=== PATIENT | female | born 1995 | race African-American/Black ===

== ENCOUNTER 2017-08-15 07:04 | Inpatient (IN) ==
[~2017-08-15 07:04] MED LIST: ceFAZolin 1,000 MG in SYRINGE 1 EACH IV SCH
[2017-08-15] MEDS ORDERED: FAMOTIDINE 20 MG/2 ML VIAL IV ONE (07:49)
[2017-08-15] MEDS ORDERED: CITRIC ACID/SODIUM CITRATE 30 ML UDCUP PO ONE (07:49)
[2017-08-15 08:16] LABS: Basophils % 0.2 % (0.0-0.8); Eosinophils % 0.6 % (0.00-10.9); Hematocrit 36.1 VOL% (35.7-47.0); Hemoglobin 11.6 GM/DL (12.0-16.0); Immature Granulocytes % 0.3 %; Immature Granulocytes Absolute 0.02 #; Lymphocytes % 32.2 % (21.3-54.2); Mean Corpuscular HGB Conc 32.1 GM/DL (32-36); Mean Corpuscular Hemoglobin 27 PG (27-34); Mean Corpuscular Volume 83.2 FL (87-102); Mean Platelet Volume 11.9 FL (9.6-12.0); Monocytes # 0.3 10*3/uL (0.11-0.8); Monocytes % 5.4 % (1.7-12.7); Neutrophils # 3.9 10*3/uL (1.4-7.4); Neutrophils % 61.3 % (38.7-73.9); Platelet Count 204 T/CUMM (130-400); Red Blood Count 4.34 MC/CUMM (3.8-5.5); White Blood Count 6.3 T/CUMM (4-12)
[2017-08-15] MEDS: LACTATED RINGERS 1,000 ML IV SCH ×2 (08:31→15:29)
[2017-08-15 08:33] LABS: Albumin 2.6 G/DL (3.4-5.0); Bilirubin,Total 0.5 MG/DL (0.2-1.0); Calcium 8.2 MG/DL (8.5-10.1); Osmolality,Calculated 276.4 MOS/KG (273-304); Potassium 3.6 MMOL/L (3.5-5.1)
[2017-08-15] MEDS ORDERED: cefOXitin 2,000 MG in SYRINGE 1 EACH IV ONE (08:46)
[2017-08-15] MEDS ORDERED: ONDANSETRON 4 MG/2 ML VIAL IV ONE (08:47)
[2017-08-15] MEDS ORDERED: PROMETHAZINE 25 MG/1 ML VIAL IM ONE (08:47)
[2017-08-15] MEDS ORDERED: diphenhydrAMINE 50 MG/1 ML VIAL IV PRN ×4 (08:47→18:39)
[2017-08-15] MEDS ORDERED: ePHEDrine 50 MG/ML AMP IV PRN (08:47)
[2017-08-15] MEDS ORDERED: hydrOXYzine HCL 25 MG/1 ML VIAL IM PRN ×2 (08:47→18:39)
[2017-08-15] MEDS ORDERED: LACTATED RINGERS 1,000 ML IV ONE (08:47)
[2017-08-15] MEDS ORDERED: OXYTOCIN/LR 20 UNIT/1,000 ML BAG IV ONE ×3 (08:50→20:23)
[2017-08-15] MEDS ORDERED: SODIUM CHLORIDE 0.9% 100 ML IV ONE (09:31)
[2017-08-15] MEDS ORDERED: MIDAZOLAM 2 MG/2 ML VIAL ONE (17:39)
[2017-08-15] MEDS ORDERED: fentaNYL 100 MCG/2 ML VIAL ONE ×2 (17:39→17:49)
[2017-08-15] MEDS ORDERED: MORPHINE 10 MG/10 ML VIAL ONE (17:39)
[2017-08-15] MEDS ORDERED: SUCCINYLCHOLINE 200 MG/10 ML VIAL ONE (17:40)
[2017-08-15] MEDS ORDERED: PROPOFOL 200 MG/20 ML VIAL IV ONE (17:40)
[2017-08-15] MEDS ORDERED: ONDANSETRON 4 MG/2 ML VIAL ONE (17:40)
[2017-08-15] MEDS ORDERED: KETOROLAC 60 MG/2 ML VIAL IM ONE (18:39)
[2017-08-15] MEDS ORDERED: ONDANSETRON 4 MG/2 ML VIAL IV PRN ×2 (18:39→20:23)
[2017-08-15] MEDS ORDERED: NALOXONE 0.4 MG/ML VIAL IV PRN (18:41)
[2017-08-15] MEDS ORDERED: MORPHINE PCA 30 MG/30 ML SYRINGE IV SCH (19:00)
[2017-08-15 19:16] LABS: Apearance,Urine Slightly Hazy (Clear); Bacteria,Urine Occasional /HPF (Few); Bilirubin,Urine Negative (Negative); Blood, Urine Negative (Negative); Glucose,Urine (UA) Negative (Negative); Ketones,Urine 20 mg/dL (Negative); Mucus,Urine Occasional /LPF (Occasional); Nitrite,Urine Negative (Negative); Protein,Urine 30 MG/DL; RBC,Urine 3 /HPF (0-4); Squamous Epithelial Cell,Urine Occasional /HPF (0-10); Urine Color Yellow (Yellow); Urine Specific Gravity 1.024 (1.001-1.035); Urine Urobilinogen < 2.0 EU/DL (0.2-1.0); WBC,Urine 1 /HPF (0-6)
[2017-08-15] MEDS ORDERED: SIMETHICONE CHEW 80 MG TABLET PO PRN (20:23)
[2017-08-15] MEDS ORDERED: MAGNESIUM HYDROXIDE SUSP 30 ML UDCUP PO PRN (20:23)
[2017-08-15] MEDS ORDERED: ACETAMINOPHEN 325 MG TABLET PO PRN (20:23)
[2017-08-15] MEDS ORDERED: RHO(D) IMMUNE GLOBULIN 300 MCG SYRINGE IM ONE (20:23)
[2017-08-15] MEDS: DOCUSATE SODIUM 100 MG CAPSULE PO SCH (21:07)
[2017-08-16] MEDS: KETOROLAC 30 MG/1 ML VIAL IM SCH ×4 (01:21→20:24)
[2017-08-16] MEDS: KETOROLAC 30 MG/1 ML VIAL IV SCH ×4 (01:21→20:23)
[2017-08-16] MEDS: ceFAZolin 1,000 MG in SYRINGE 1 EACH IV SCH ×2 (01:27→08:11)
[2017-08-16 05:38] LABS: Basophils % 0.1 % (0.0-0.8); Eosinophils % 0.3 % (0.00-10.9); Hematocrit 32.4 VOL% (35.7-47.0); Immature Granulocytes % 0.4 %; Immature Granulocytes Absolute 0.03 #; Lymphocytes % 28.6 % (21.3-54.2); Mean Corpuscular HGB Conc 30.9 GM/DL (32-36); Mean Corpuscular Hemoglobin 26 PG (27-34); Mean Platelet Volume 11.4 FL (9.6-12.0); Monocytes # 0.4 10*3/uL (0.11-0.8); Monocytes % 5.3 % (1.7-12.7); Neutrophils # 4.6 10*3/uL (1.4-7.4); Neutrophils % 65.3 % (38.7-73.9); Platelet Count 182 T/CUMM (130-400); Red Blood Count 3.81 MC/CUMM (3.8-5.5); Red Cell Distribution Width 15.9 % (9.3-17.3)
[2017-08-16] MEDS: LACTATED RINGERS 1,000 ML IV SCH ×3 (07:44→17:30)
[2017-08-16] MEDS: DOCUSATE SODIUM 100 MG CAPSULE PO SCH ×2 (08:12→20:48)
[2017-08-16] MEDS: MULTIVITAMIN (PRENATAL) TABLET PO SCH (08:12)
[2017-08-16] MEDS: IBUPROFEN 800 MG TABLET PO PRN (13:57)
[2017-08-17] MEDS: IBUPROFEN 800 MG TABLET PO PRN (03:38)
[2017-08-17] MEDS: DOCUSATE SODIUM 100 MG CAPSULE PO SCH ×2 (09:25→21:18)
[2017-08-17] MEDS: MULTIVITAMIN (PRENATAL) TABLET PO SCH (09:25)
[2017-08-17] MEDS: LACTATED RINGERS 1,000 ML IV SCH (11:04)
[2017-08-17] MEDS ORDERED: KETOROLAC 30 MG/1 ML VIAL IM PRN (12:53)
[2017-08-17] MEDS: oxyCODONE/ACETAMINOPHEN 5-325 MG TABLET PO PRN ×2 (13:46→21:18)
[2017-08-18] MEDS: oxyCODONE/ACETAMINOPHEN 5-325 MG TABLET PO PRN ×2 (05:45→14:03)
[2017-08-18 07:22] VITALS: BP 132/88
[2017-08-18] MEDS: DOCUSATE SODIUM 100 MG CAPSULE PO SCH (09:13)
[2017-08-18] MEDS: MULTIVITAMIN (PRENATAL) TABLET PO SCH (09:13)
[2017-08-18] MEDS: IBUPROFEN 800 MG TABLET PO PRN (14:03)
== END 2017-08-18 17:55 | disposition home or self-care (01) | DRG 540 ==
LOC: N.LDOUT 07:04 → N.LD 07:05 → N.OB 21:35
PROVIDERS: ADMIT Obstetrics & Gynecology; ATTEND Obstetrics & Gynecology
PROC: LDCSECT (ICD-10-PCS; 2017-08-15 17:00)

== ENCOUNTER 2018-08-28 04:23 | Inpatient (IN) ==
[2018-08-28] MEDS ORDERED: CITRIC ACID/SODIUM CITRATE 30 ML UDCUP PO ONE (04:32)
[2018-08-28] MEDS ORDERED: FAMOTIDINE 20 MG/2 ML VIAL IV PRN (04:32)
[2018-08-28] MEDS ORDERED: LACTATED RINGERS 1,000 ML IV SCH ×2 (05:00→09:30)
[2018-08-28 05:30] LABS: Basophils % 0.3 % (0.0-0.8); Eosinophils # 0.2 10*3/uL (0.0-0.87); Hematocrit 37.6 VOL% (35.7-47.0); Hemoglobin 11.4 GM/DL (12.0-16.0); Immature Granulocytes % 0.3 %; Immature Granulocytes Absolute 0.02 #; Lymphocytes % 39.1 % (21.3-54.2); Mean Corpuscular HGB Conc 30.3 GM/DL (32-36); Mean Corpuscular Hemoglobin 26 PG (27-34); Mean Corpuscular Volume 84.1 FL (87-102); Monocytes # 0.3 10*3/uL (0.11-0.8); Monocytes % 4.3 % (1.7-12.7); Neutrophils # 4.1 10*3/uL (1.4-7.4); Platelet Count 234 T/CUMM (130-400); Red Blood Count 4.47 MC/CUMM (3.8-5.5); White Blood Count 7.7 T/CUMM (4-12)
[2018-08-28] MEDS ORDERED: OXYTOCIN/LR 20 UNIT/1,000 ML BAG IV PRN (06:39)
[2018-08-28] MEDS ORDERED: EPINEPHrine 1 MG/ML VIAL ONE (07:25)
[2018-08-28] MEDS ORDERED: ACETAMINOPHEN 325 MG TABLET PO PRN (09:12)
[2018-08-28] MEDS ORDERED: ONDANSETRON 4 MG/2 ML VIAL IV PRN (09:12)
[2018-08-28] MEDS ORDERED: RHO(D) IMMUNE GLOBULIN 300 MCG SYRINGE IM ONE (09:12)
[2018-08-28] MEDS ORDERED: OXYTOCIN/LR 20 UNIT/1,000 ML BAG IV ONE (09:12)
[2018-08-28] MEDS ORDERED: oxyCODONE/ACETAMINOPHEN 5-325 MG TABLET PO PRN ×2 (09:13→19:29)
[2018-08-28] MEDS ORDERED: ceFAZolin 1,000 MG in SYRINGE 1 EACH IV SCH (09:30)
[2018-08-28 10:27] LABS: Apearance,Urine Slightly Hazy (Clear); Bilirubin,Urine Negative (Negative); Blood, Urine Negative (Negative); Glucose,Urine (UA) Negative (Negative); Hyaline Casts,Urine 2 /LPF (0-3); Ketones,Urine 20 mg/dL (Negative); Mucus,Urine Few /LPF (Occasional); Nitrite,Urine Negative (Negative); Protein,Urine 30 MG/DL; RBC,Urine 1 /HPF (0-4); Squamous Epithelial Cell,Urine Occasional /HPF (0-10); Urine Color Yellow (Yellow); Urine Specific Gravity 1.031 (1.001-1.035); WBC,Urine 2 /HPF (0-6)
[2018-08-28] MEDS ORDERED: BUPIVACAINE SPINAL 0.75% 2 ML AMP SPINAL ONE (10:35)
[2018-08-28] MEDS ORDERED: ONDANSETRON 4 MG/2 ML VIAL ONE (10:36)
[2018-08-28] MEDS ORDERED: MORPHINE 10 MG/10 ML VIAL ONE (10:36)
[2018-08-28] MEDS ORDERED: PHENYLEPHRINE 1 MG/10 ML SYRINGE IV ONE (10:36)
[2018-08-28] MEDS ORDERED: fentaNYL 100 MCG/2 ML VIAL ONE (10:36)
[2018-08-28] MEDS: ceFAZolin 1,000 MG in SYRINGE 1 EACH IV SCH (16:00)
[2018-08-28 16:37] LABS: Basophils % 0.2 % (0.0-0.8); Eosinophils # 0.1 10*3/uL (0.0-0.87); Eosinophils % 1.5 % (0.00-10.9); Hematocrit 35.7 VOL% (35.7-47.0); Hemoglobin 10.9 GM/DL (12.0-16.0); Immature Granulocytes % 0.2 %; Immature Granulocytes Absolute 0.02 #; Lymphocytes # 2.3 10*3/uL (1.4-4.0); Lymphocytes % 28.1 % (21.3-54.2); Mean Corpuscular HGB Conc 30.5 GM/DL (32-36); Mean Corpuscular Hemoglobin 26 PG (27-34); Mean Corpuscular Volume 83.8 FL (87-102); Mean Platelet Volume 11.7 FL (9.6-12.0); Monocytes # 0.4 10*3/uL (0.11-0.8); Monocytes % 4.3 % (1.7-12.7); Neutrophils # 5.4 10*3/uL (1.4-7.4); Neutrophils % 65.7 % (38.7-73.9); Platelet Count 212 T/CUMM (130-400); Red Blood Count 4.26 MC/CUMM (3.8-5.5); Red Cell Distribution Width 16.1 % (9.3-17.3); White Blood Count 8.2 T/CUMM (4-12)
[2018-08-28] MEDS ORDERED: diphenhydrAMINE CAP 25 MG CAPSULE PO PRN (18:44)
[2018-08-28] MEDS: DOCUSATE SODIUM 100 MG CAPSULE PO SCH (20:58)
[2018-08-29] MEDS: IBUPROFEN 800 MG TABLET PO PRN ×3 (00:06→17:47)
[2018-08-29] MEDS: ceFAZolin 1,000 MG in SYRINGE 1 EACH IV SCH (00:07)
[2018-08-29 05:33] LABS: Basophils % 0.3 % (0.0-0.8); Eosinophils # 0.2 10*3/uL (0.0-0.87); Immature Granulocytes % 0.3 %; Immature Granulocytes Absolute 0.03 #; Lymphocytes # 2.4 10*3/uL (1.4-4.0); Lymphocytes % 26.6 % (21.3-54.2); Mean Corpuscular HGB Conc 30.6 GM/DL (32-36); Mean Corpuscular Hemoglobin 25 PG (27-34); Mean Corpuscular Volume 83.1 FL (87-102); Mean Platelet Volume 12.1 FL (9.6-12.0); Monocytes # 0.5 10*3/uL (0.11-0.8); Monocytes % 5.6 % (1.7-12.7); Neutrophils # 5.8 10*3/uL (1.4-7.4); Neutrophils % 65.2 % (38.7-73.9); Platelet Count 231 T/CUMM (130-400); Red Blood Count 4.33 MC/CUMM (3.8-5.5); Red Cell Distribution Width 15.8 % (9.3-17.3); White Blood Count 8.9 T/CUMM (4-12)
[2018-08-29] MEDS: MULTIVITAMIN (PRENATAL) TABLET PO SCH (08:05)
[2018-08-29] MEDS: DOCUSATE SODIUM 100 MG CAPSULE PO SCH ×2 (08:05→20:12)
[2018-08-29] MEDS: MAGNESIUM HYDROXIDE SUSP 30 ML UDCUP PO PRN ×2 (08:06→20:12)
[2018-08-29] MEDS: SIMETHICONE CHEW 80 MG TABLET PO PRN (08:06)
[2018-08-30] MEDS: IBUPROFEN 800 MG TABLET PO PRN ×3 (00:39→20:55)
[2018-08-30] MEDS: MAGNESIUM HYDROXIDE SUSP 30 ML UDCUP PO PRN (08:40)
[2018-08-30] MEDS: DOCUSATE SODIUM 100 MG CAPSULE PO SCH ×2 (08:40→20:54)
[2018-08-30] MEDS: SIMETHICONE CHEW 80 MG TABLET PO PRN (08:40)
[2018-08-30] MEDS: MULTIVITAMIN (PRENATAL) TABLET PO SCH (08:40)
[2018-08-31 07:25] VITALS: BP 154/92
[2018-08-31] MEDS: DOCUSATE SODIUM 100 MG CAPSULE PO SCH (08:48)
[2018-08-31] MEDS: MULTIVITAMIN (PRENATAL) TABLET PO SCH (08:48)
[2018-08-31] MEDS: SIMETHICONE CHEW 80 MG TABLET PO PRN (12:20)
== END 2018-08-31 15:40 | disposition home or self-care (01) | DRG 540 ==
LOC: N.LDOUT 04:23 → N.LD 04:25 → N.OB 12:03
PROVIDERS: ADMIT Obstetrics & Gynecology; ATTEND Obstetrics & Gynecology
PROC: LDCSECT (ICD-10-PCS; 2018-08-28 07:30)

== ENCOUNTER 2022-02-08 07:06 | Inpatient (IN) ==
[2022-02-08] MEDS ORDERED: METHYLERGONOVINE 0.2 MG/1 ML AMP IM PRN (07:43)
[2022-02-08] MEDS ORDERED: ceFAZolin 3,000 MG in SYRINGE 1 EACH IV ONE (07:43)
[2022-02-08] MEDS ORDERED: miSOPROStoL 200 MCG TABLET RECTAL PRN (07:43)
[2022-02-08] MEDS ORDERED: CARBOPROST TROMETHAMINE 250 MCG/ML AMP IM PRN (07:43)
[2022-02-08] MEDS ORDERED: OXYTOCIN/LR 20 UNIT/1,000 ML BAG IV ONE ×2 (07:43→12:49)
[2022-02-08] MEDS ORDERED: TRANEXAMIC ACID 1,000 MG in SODIUM CHLORIDE 0.9% 100 ML IV PRN (07:43)
[2022-02-08] MEDS ORDERED: CITRIC ACID/SODIUM CITRATE 30 ML UDCUP PO ONE (07:43)
[2022-02-08] MEDS ORDERED: LACTATED RINGERS 1,000 ML IV SCH ×3 (08:00→13:00)
[2022-02-08 08:05] LABS: Basophils % 0.3 % (0.0-0.8); Eosinophils # 0.2 10*3/uL (0.0-0.87); Eosinophils % 2.7 % (0.00-10.9); Hematocrit 37.4 VOL% (35.7-47.0); Hemoglobin 11.9 GM/DL (12.0-16.0); Immature Granulocytes % 0.3 %; Immature Granulocytes Absolute 0.02 #; Lymphocytes # 2.9 10*3/uL (1.4-4.0); Lymphocytes % 39.2 % (21.3-54.2); Mean Corpuscular HGB Conc 31.8 GM/DL (32-36); Mean Corpuscular Volume 84.4 FL (87-102); Mean Platelet Volume 11.8 FL (9.6-12.0); Monocytes # 0.3 10*3/uL (0.11-0.8); Monocytes % 4.6 % (1.7-12.7); Neutrophils % 52.9 % (38.7-73.9); Platelet Count 209 T/CUMM (130-400); Red Blood Count 4.43 MC/CUMM (3.8-5.5); Red Cell Distribution Width 15.5 % (9.3-17.3); White Blood Count 7.3 T/CUMM (4-12)
[2022-02-08 08:19] LABS: INR 0.9; PT Patient Result 10.2 SECS (10.1-12.1); Partial Thromboplastin Time 32.2 SECS (23.7-32.9)
[2022-02-08 08:21] LABS: Albumin 2.5 G/DL (3.4-5.0); Bilirubin,Total 0.6 MG/DL (0.20-1.00); Calcium 8.8 MG/DL (8.5-10.1); Osmolality,Calculated 273.7 MOS/KG (273-304); Potassium 3.4 MMOL/L (3.5-5.1); Total Protein 6.6 G/DL (6.4-8.2)
[2022-02-08 08:24] LABS: Bilirubin,Direct 0.12 MG/DL (0.0-0.20); Uric Acid 4.3 MG/DL (2.6-6.0)
[2022-02-08] MEDS ORDERED: ONDANSETRON 4 MG/2 ML VIAL ONE (09:21)
[2022-02-08] MEDS ORDERED: buprenorphine HCL 0.3 MG/ML VIAL ONE (09:21)
[2022-02-08] MEDS ORDERED: BUPIVACAINE SPINAL 0.75% 2 ML AMP SPINAL ONE (09:21)
[2022-02-08] MEDS ORDERED: LACTATED RINGERS 1,000 ML IV ONE ×2 (10:03→11:36)
[2022-02-08] MEDS ORDERED: FAMOTIDINE 20 MG/2 ML VIAL IV ONE (10:03)
[2022-02-08] MEDS ORDERED: PHENYLEPHRINE 1 MG/10 ML SYRINGE IV ONE (11:36)
[2022-02-08] MEDS ORDERED: ACETAMINOPHEN INJ 1,000 MG/100 ML VIAL IV ONE (11:45)
[2022-02-08 12:05] LABS: Cord Venous Blood HCO3 22.1 MMOL/L; Cord Venous Blood PCO2 46.6 MMHG; Cord Venous Blood PO2 31.1
[2022-02-08 12:17] LABS: Bilirubin,Urine Negative (Negative); Blood, Urine Small mg/dL (Negative); Glucose,Urine (UA) Negative (Negative); Ketones,Urine Trace mg/dL (Negative); Mucus,Urine Occasional /LPF (Occasional); Nitrite,Urine Negative (Negative); Protein,Urine Trace mg/dL (Negative); RBC,Urine 53 /HPF (0-4); Squamous Epithelial Cell,Urine Occasional /HPF (0-10); Urine Appearance Clear (Clear); Urine Color Yellow (Yellow); Urine Specific Gravity >= 1.030 (1.001-1.035); Urine Urobilinogen 0.2 eU/dL (<2.0)
[2022-02-08] MEDS ORDERED: ONDANSETRON 4 MG/2 ML VIAL IV PRN (12:49)
[2022-02-08] MEDS ORDERED: SIMETHICONE CHEW 80 MG TABLET PO PRN (12:49)
[2022-02-08] MEDS ORDERED: RHO(D) IMMUNE GLOBULIN 300 MCG SYRINGE IM ONE (12:49)
[2022-02-08] MEDS ORDERED: ACETAMINOPHEN 325 MG TABLET PO PRN (12:49)
[2022-02-08] MEDS ORDERED: MAGNESIUM HYDROXIDE SUSP 30 ML UDCUP PO PRN (12:49)
[2022-02-08] MEDS ORDERED: HYDROmorphone 1 MG/1 ML SYRINGE IV PRN (14:59)
[2022-02-08] MEDS: oxyCODONE/ACETAMINOPHEN 5-325 MG TABLET PO PRN (17:03)
[2022-02-08] MEDS: IBUPROFEN 800 MG TABLET PO PRN (18:55)
[2022-02-08 18:57] LABS: Basophils % 0.4 % (0.0-0.8); Eosinophils # 0.1 10*3/uL (0.0-0.87); Eosinophils % 0.9 % (0.00-10.9); Hematocrit 35.2 VOL% (35.7-47.0); Hemoglobin 10.8 GM/DL (12.0-16.0); Immature Granulocytes % 0.3 %; Immature Granulocytes Absolute 0.02 #; Lymphocytes # 1.8 10*3/uL (1.4-4.0); Lymphocytes % 23.2 % (21.3-54.2); Mean Corpuscular HGB Conc 30.7 GM/DL (32-36); Mean Corpuscular Volume 87.6 FL (87-102); Mean Platelet Volume 11.2 FL (9.6-12.0); Monocytes # 0.4 10*3/uL (0.11-0.8); Monocytes % 4.6 % (1.7-12.7); Neutrophils % 70.6 % (38.7-73.9); Platelet Count 183 T/CUMM (130-400); Red Blood Count 4.02 MC/CUMM (3.8-5.5); Red Cell Distribution Width 15.5 % (9.3-17.3); White Blood Count 7.6 T/CUMM (4-12)
[2022-02-08] MEDS: DOCUSATE SODIUM 100 MG CAPSULE PO SCH (20:47)
[2022-02-09 05:21] LABS: Basophils % 0.5 % (0.0-0.8); Eosinophils # 0.2 10*3/uL (0.0-0.87); Eosinophils % 2.1 % (0.00-10.9); Hematocrit 36.8 VOL% (35.7-47.0); Hemoglobin 11.3 GM/DL (12.0-16.0); Immature Granulocytes % 0.4 %; Immature Granulocytes Absolute 0.03 #; Lymphocytes # 2.4 10*3/uL (1.4-4.0); Lymphocytes % 31.9 % (21.3-54.2); Mean Corpuscular HGB Conc 30.7 GM/DL (32-36); Mean Corpuscular Volume 86.8 FL (87-102); Mean Platelet Volume 10.9 FL (9.6-12.0); Monocytes # 0.4 10*3/uL (0.11-0.8); Monocytes % 4.6 % (1.7-12.7); Neutrophils % 60.5 % (38.7-73.9); Platelet Count 196 T/CUMM (130-400); Red Blood Count 4.24 MC/CUMM (3.8-5.5); Red Cell Distribution Width 15.5 % (9.3-17.3); White Blood Count 7.6 T/CUMM (4-12)
[2022-02-09] MEDS: IBUPROFEN 800 MG TABLET PO PRN ×2 (09:22→16:00)
[2022-02-09] MEDS: MULTIVITAMIN (PRENATAL) TABLET PO SCH (09:22)
[2022-02-09] MEDS: DOCUSATE SODIUM 100 MG CAPSULE PO SCH ×2 (09:22→21:43)
[2022-02-09] MEDS: oxyCODONE/ACETAMINOPHEN 5-325 MG TABLET PO PRN ×3 (09:25→21:43)
[2022-02-10] MEDS: IBUPROFEN 800 MG TABLET PO PRN ×5 (01:28→22:57)
[2022-02-10] MEDS: oxyCODONE/ACETAMINOPHEN 5-325 MG TABLET PO PRN ×3 (05:29→18:14)
[2022-02-10] MEDS: MULTIVITAMIN (PRENATAL) TABLET PO SCH (09:31)
[2022-02-10] MEDS: DOCUSATE SODIUM 100 MG CAPSULE PO SCH ×2 (09:31→22:58)
[2022-02-11] MEDS: oxyCODONE/ACETAMINOPHEN 5-325 MG TABLET PO PRN ×2 (03:11→11:31)
[2022-02-11 07:35] VITALS: BP 122/57
[2022-02-11] MEDS: DOCUSATE SODIUM 100 MG CAPSULE PO SCH (08:16)
[2022-02-11] MEDS: MULTIVITAMIN (PRENATAL) TABLET PO SCH (08:16)
[2022-02-11] MEDS: IBUPROFEN 800 MG TABLET PO PRN (08:17)
[2022-02-11] MEDS ORDERED: MEASLES/MUMPS/RUBELLA VACCINE 0.5 ML VIAL SUBCUT ONE (13:47)
== END 2022-02-11 14:30 | disposition home or self-care (01) | DRG 540 ==
LOC: N.LDOUT 07:06 → N.LD 07:07 → N.OB 15:19
PROVIDERS: ADMIT Obstetrics & Gynecology; ATTEND Obstetrics & Gynecology
PROC: LDCSECT (ICD-10-PCS; 2022-02-08 10:30)